=== PATIENT | female | born 1990 ===

== ENCOUNTER 2023-01-09 09:27 | Outpatient (AMB) | payer OTHER, SELFPAY ==
--- NOTE | 2023-01-09 09:30 | MHC.OFFVIS ---
Intake Vital Signs 01/09/23 09:31 Height 5 ft 4 in Weight 163 lb BMI 28.0 BP 118/74 Intake Visit Reasons: Tubal Consult Strategic Account Director Required: No Information Interpreted: non-clinical & clinical Accompanied by: Self / Same As Patient Allergies No Known Allergies Allergy (Verified 01/09/23 09:32) Is last menstrual period known: Yes Last menstrual period: 01/02/23 HPI HPI Comments History of Present Illness Details Presenting to discuss different options of control. Last co testing was negative in 11/18 [facility] Surgical History Hx of cholecystectomy Family History Mother Diabetes HTN (hypertension) COPD (chronic obstructive pulmonary disease) Hypothyroidism Father Heart disease Brother Diabetes Social History Household Members: Children Housing: House Alcohol intake: current Alcohol intake frequency: holidays/special occasions only Patient Tobacco Use Status: Former Tobacco user Years Smoked: 5 Current occupational status: employed Current occupation: [employer] Sexual orientation: Straight/Heterosexual Gender identity: Female Female Reproductive History Menstrual Age of Menarche: 11 Duration of menses: 6-7 days Date of last menstrual period: 01/02/23 control method: none Total pregnancies: 6 Full term: 3 Number of Living Children: 3 Ab spontaneous: 3 Review of Systems Const All systems reviewed & are unremarkable except as noted in HPI and below Reports as per HPI and Reports no additional complaints GI Reports no additional complaints Reports no additional complaints Physical Exam Vital Signs: Last Vital Signs BP 118/74 01/09/23 09:31 BMI result Body Mass Index 28.0 Assessment & Plan Assessment & Plan (1) Family planning: Code(s): Z30.09 - Encounter for other general counseling and advice on contraception Plan: Discussed with the patient the different options of control including but not limited to, control pills, Nuvaring, DMPA and Nexplanon, Copper and Progesterone IUD, Sterilization, & vasectomy. A more detailed discussion about the pros and cons of each were discussed with the pt. The patient elected to go with tubal sterilization. The patient verbalized understanding and stated that she had completed her family and is would like to proceed with permanent sterilization. Laparoscopic bilateral sterilization using bilateral cauterization possible bilateral salpingectomies scheduled. [employer] paperwork signed, will schedule the procedure after 30 days and a preop visit. All questions answered. The patient verbalized understanding. Coding Level of Care Code New Pt Level 3 (54745) Diagnoses Family planning Z30.09
[2023-01-09 09:31] VITALS: BP 118/74; BMI 28.0
== END 2023-01-09 11:57 | disposition home or self-care (01) ==
PROVIDERS: Visit Provider Obstetrics & Gynecology
DX: Z30.09 Encounter for other general counseling and advice on contraception (principal)
CPT/HCPCS: 99203

== ENCOUNTER → 2023-01-09 09:27 | Outpatient (BNVA) | payer OTHER, SELFPAY | PROVIDERS: Visit Provider Obstetrics & Gynecology ==

== ENCOUNTER 2023-02-11 07:28 | Outpatient (AMB) | payer OTHER, SELFPAY ==
--- NOTE | 2023-02-11 07:30 | A.OFFVIS_ITS ---
Intake Vital Signs 02/11/23 07:32 Height 5 ft 4 in Weight 160 lb 14.999 oz BMI 27.6 BP 120/72 Intake Visit Reasons: pre op Manager Access Required: No Information Interpreted: non-clinical & clinical Accompanied by: Daughter Allergies No Known Allergies Allergy (Verified 02/11/23 07:36) Is last menstrual period known: Yes Last menstrual period: 01/30/23 HPI HPI Comments History of Present Illness Details The patient is presenting for preoperative visit for Laparoscopic bilateral cauterization of fallopian tubes possible salpingectomies for sterilization. The patient is requesting permanent sterilization because she completed her family. [facility] Surgical History Hx of cholecystectomy Family History Mother Diabetes HTN (hypertension) COPD (chronic obstructive pulmonary disease) Hypothyroidism Father Heart disease Brother Diabetes Social History Household Members: Children Housing: House Alcohol intake: current Alcohol intake frequency: holidays/special occasions only Patient Tobacco Use Status: Former Tobacco user Years Smoked: 5 Current occupational status: employed Current occupation: [employer] Sexual orientation: Straight/Heterosexual Gender identity: Female Female Reproductive History Menstrual Age of Menarche: 11 Date of last menstrual period: 01/30/23 Review of Systems Const All systems reviewed & are unremarkable except as noted in HPI and below Card Reports as per HPI, Reports no additional complaints, Denies chest pain, Denies chest pain with activity, Denies dyspnea and Denies dyspnea on exertion Resp Reports as per HPI, Reports no additional complaints, Denies cough, Denies pain on inspiration, Denies pain with cough, Denies dyspnea, Denies dyspnea on exertion and Denies wheezing GI Reports as per HPI, Reports no additional complaints, Denies abdominal pain, Denies change in bowel habits, Denies change in stool character, Denies early satiety, Denies dyspepsia, Denies heartburn, Denies nausea and Denies vomiting Reports as per HPI, Denies hematuria and Denies dysuria Aller/Immun Denies wheezing Physical Exam Vital Signs: Last Vital Signs BP 120/72 02/11/23 07:32 BMI result Body Mass Index 27.6 Const General: cooperative, healthy appearing and comfortable Chest Chest palpation & inspection: normal inspection of the chest and normal palpation of entire chest wall Resp Effort & Inspection: normal respiratory effort Auscultation: clear to auscultation bilaterally Percussion: percussion normal Cardio Palpation: normal PMI Rate: regular rate Rhythm: regular rhythm Heart sounds: no murmurs and no rubs Peripheral pulses: Peripheral pulses 2+ throughout GI Inspection: Yes normal to inspection Palpation (GI): Soft to palpation, nontender, no guarding, not rigid and No hepatosplenomegaly present Percussion: Yes normal to percussion Auscultation: normal bowel sounds Rectal Exam - Female: deferred Assessment & Plan Assessment & Plan (1) Sterilization: Code(s): Z30.2 - Encounter for sterilization Plan: Discussed with the patient the different options of control including but not limited to, control pills, Nuvaring, DMPA and Nexplanon, Copper and Progesterone IUD, Sterilization, & vasectomy. A more detailed discussion about t he pros and cons of each were discussed with the pt. The patient elected to go with tubal sterilization. Different techniques were discussed with the patient including laparoscopic bilateral fallope ring application, bipolar cauterization of Fallopian tubes & bilateral salpingectomy with benefits of reducing ovarian cancer (mentioned to the patient that currently this is the recommended procedure for sterilization). Discussed with the patient the likelihood of success, the failure rate and risk of ectopic , irreversibility of the procedure , regret rate and complications during procedure including but not limited to: inability to perform the procedure for a variety of technical reasons, infection, bleeding, possible need for blood transfusion, risk exposure HIV Hepatitis B and C, anesthesia complications, injury to bladder, bowel, ureter blood vessels, vagina by way of perforation requiring a second operation to repair fistula, major surgery requiring colostomy possible removal of the uterus, ovaries and tubes necessitating laparotomy. The patient verbalized understanding and stated that she had completed her family and is would like to proceed with permanent sterilization. Laparoscopic bilateral sterilization using bilateral cauterization possible bilateral salpingectomies scheduled. All questions answered. The patient verbalized understanding and signed the consent. Coding Level of Care Code Est Pt Level 3 (88973) Diagnoses Sterilization Z30.2
[2023-02-11 07:32] VITALS: BP 120/72; BMI 27.6
== END 2023-02-11 07:43 | disposition home or self-care (01) ==
PROVIDERS: Visit Provider Obstetrics & Gynecology
DX: Z30.2 Encounter for sterilization (principal)
CPT/HCPCS: 99213

== ENCOUNTER → 2023-02-11 07:28 | Outpatient (BNVA) | payer OTHER, SELFPAY | PROVIDERS: Visit Provider Obstetrics & Gynecology | DX: Z30.2 Encounter for sterilization (principal) | CPT/HCPCS: 99212 ==

== ENCOUNTER 2023-02-15 07:26 | Day surgery (SDC) | payer OTHER, SELFPAY ==
[2023-02-13 09:06] VITALS: BMI 27.6
--- NOTE | 2023-02-14 09:13 | P.CONAN_ITS ---
Documented by User: Bethanie Soto NP 02/14/23 09:13 HPI - Anesthesia Eval Consult details Narrative: 32yo F for Tubal Ligation Laparoscopic,with poss Salpingectomy PMFSH Active Problems Active Problems: All Active Problems (Updated 02/11/23 @ 07:36 by Anibal Rubin MD) Sterilization (Acute) Family planning (Acute) Past Medical History Medical History Smoker Family History Family History Mother Diabetes HTN (hypertension) COPD (chronic obstructive pulmonary disease) Hypothyroidism Father Heart disease Brother Diabetes Surgical History Surgical History Hx of cholecystectomy Social History Social History Household Members: Children Housing: House Alcohol intake: current Alcohol intake frequency: a few times a month Patient Tobacco Use Status: Current someday Tobacco user Tobacco use type: Cigarette Cigarettes Per Day: 2 Years Smoked: 5 Smoked in Last 30 Days: Yes Use of substances other than those prescribed or required for medical reasons: No Are you DNR?: No Advance Directives: No Advance Directives Information Provided: Yes Current occupational status: employed Current occupation: [email or web address] Sexual orientation: Straight/Heterosexual Gender identity: Female Meds Allergies Allergy/AdvReac Type Severity Reaction Status Date / Time No Known Allergies Allergy Verified 02/15/23 07:57 Home Medications Medication Instructions Recorded Confirmed Last Taken Type No Known Home Meds 01/09/23 02/15/23 Unknown History Exam Height,Weight and Vital Signs: Height 5 ft 4 in Weight 73 kg Assessment and Plan Assessment Anesthesia Assessment: Chart Reviewed Documented by User: Alyssa Rodriguez MD 02/15/23 08:18 PMFSH Active Problems Active Problems: All Active Problems (Updated 02/15/23 @ 08:94 by MD) Sterilization (Acute) Family planning (Acute) Very anxious Increased BMI Possible ANA but not formally diagnosed Smoker- last cigarette this morning Past Medical History Medical History Smoker Family History Family History Mother Diabetes HTN (hypertension) COPD (chronic obstructive pulmonary disease) Hypothyroidism Father Heart disease Brother Diabetes Family history of problems with anesthesia: No Surgical History Surgical History Hx of cholecystectomy History of Problems with Anesthesia: No Social History Social History Household Members: Children Housing: House Alcohol intake: current Alcohol intake frequency: a few times a month Patient Tobacco Use Status: Current someday Tobacco user Tobacco use type: Cigarette Cigarettes Per Day: 2 Years Smoked: 5 Smoked in Last 30 Days: Yes Use of substances other than those prescribed or required for medical reasons: No Are you DNR?: No Advance Directives: No Advance Directives Information Provided: Yes Current occupational status: employed Current occupation: [email or web address] Sexual orientation: Straight/Heterosexual Gender identity: Female Meds Allergies Allergy/AdvReac Type Severity Reaction Status Date / Time No Known Allergies Allergy Verified 02/15/23 07:57 Home Medications Medication Instructions Recorded Confirmed Last Taken Type No Known Home Meds 01/09/23 02/15/23 Unknown History Exam Height,Weight and Vital Signs: Height 5 ft 4 in Weight 73 kg Vital Signs Temp Pulse Resp BP Pulse Ox O2 Del Method 02/15/23 07:52 98.7 F 85 16 122/78 99 Room Air Pertinent Lab Results Pertinent Lab Results: Lab Results 02/15/23 Range/Units 07:35 Urine Test NEGATIVE (NEGATIVE) Airway Mallampati Class: III (Large tongue) TM Dist: >3cm Neck ROM: Full Loose/Missing/Broken Teeth: No (Denies broken, loose, missing teeth) Heart: RRR Lungs: CTAB Assessment and Plan Assessment Anesthesia Assessment: Anesthesia Plan Discussed Final Anesthetic Review Family History of Problems with Anesthesia: No History of Problems with Anesthesia: No NPO: Yes ASA Class: II Final Preanesthetic Review: No Changes in Pt Med Stat, Meds/Allgs Chart Reviewed, Consent Obtained/Reviewed and Anes Risks/Benef Reviewed Patient Risk: Intermediate Procedure Risk: Low Assessment/Block/Sedation in SS: Assess/Block/Sedation- Anesthetic Plan Anesthetic Plan: GA Disposition: Standard PACU
[2023-02-15] VITALS (20 sets, daily range): BP systolic 97–132; BP diastolic 28–92; PULSE 71–100; RESP 16–20; TEMP 36.6–37.1; O2SAT 97–100; BMI 30.2
--- OUTSIDE RECORDS SUMMARY | 2023-02-15 07:28 | XMS_ITS | Continuity of Care Document ---
Author Name Unknown Organization [facility] ter Address [address] [place] [id number]- Care Team Providers Care Data Sme Name Role Phone Homero LAI, Deb Dong Primary Care Physician Encounter [facility] Date(s): 01/18/23 - 01/18/[address] [address]- Encounter Diagnosis Finger laceration(Final) - 01/18/23 Discharge Disposition: A-D/C Home Attending Physician: Juan Jose Ponce DO Admitting Physician: Juan Jose Ponce DO Referring Physician: Not on Staff, Referring MD Allergies, Adverse Reactions, Alerts Substance Reaction Severity Status Nuts 1 C/O: a swelling Active Percocet 7.5/325 Active 1pecan allergy=swelling. Immunizations Given and Recorded Vaccine Date Status Refusal Reason tetanus/diphtheria/pertussis, acel(Tdap) 01/18/23 Given influenza virus vaccine, inactivated 01/31/16 Give n influenza virus vaccine, inactivated 02/17/07 Give n Human Papillomavirus Vaccine 07/07/07 Given Human Papillomavirus Vaccine 05/01/07 Given Human Papillomavirus Vaccine 02/17/07 Given Tet/Diphth/Acel, Pertussis (oldterm) 07/07/07 Give n Hepatitis A Vaccine (oldterm) 02/17/07 Given Meningococcal Conjugate Vaccine 02/17/07 Given Haemophilus B Conj Vaccine (oldterm) 09/07/02 Give n Haemophilus B Conj Vaccine (oldterm) 07/02/02 Give n Haemophilus B Conj Vaccine (oldterm) 07/21/90 Give n Hepatitis B Vaccine (old term) 07/02/02 Given Hepatitis B Vaccine (old term) 01/21/02 Given tetanus-diphtheria toxoids (Td) 01/31/02 Given Varicella Virus Vaccine 01/22/00 Given Measles/Mumps/Rubella Virus Vaccine 02/12/96 Given Measles/Mumps/Rubella Virus Vaccine 12/21/90 Given diphtheria/tetanus/pertussis, acel(DTaP) 06/21/94 Given diphtheria/tetanus/pertussis, acel(DTaP) 07/25/90 Given diphtheria/tetanus/pertussis, acel(DTaP) 89 Given diphtheria/tetanus/pertussis, acel(DTaP) 89 Given diphtheria/tetanus/pertussis, acel(DTaP) 89 Given Poliovirus Vaccine, Inactivated 07/23/90 Given Poliovirus Vaccine, Inactivated 89 Given Poliovirus Vaccine, Inactivated 89 Given Poliovirus Vaccine, Inactivated 89 Given Medications albuterol CFC free 90 mcg/inh inhalation aerosol 1 puffs, Inhalation, 4 times a day, PRN for wheezing, # 18 Gm, 0 Refills, Maintenance, Aerosol Start Date: 01/16/13 Status: Ordered Sheron By Mouth, 0 Refills, Maintenance, 08/03/18 4:54:36 EDT Start Date: 08/03/18 Status: Ordered Colace sodium 100 mg oral capsule 100 mg, 1, capsule, By Mouth, Daily, PRN, # 20 capsule, Refills 3, Tot. Refills 3, Maintenance, forconstipation, 12/15/15 16:16:33, Route to Pharmacy Electronically, [id number], [facility] [id number] Start Date: 12/15/15 Stop Date: 03/31/16 Status: Ordered Colace sodium 50 mg oral capsule 1 capsule = 50 mg, By Mouth, 2 times a day, PRN for constipation, # 180 capsule, 0 Refills, Maintenance, 12/15/15 15:31:40, Capsule Start Date: 12/15/15 Status: Ordered Diclegis 10 mg-10 mg oral delayed release tablet 2 tablet, By Mouth, Daily at bedtime, Start with 1 tablet nightly for 3 nights then begin 2 tablets, # 60 tablet, 0 Refills, Maintenance, 09/07/15 11:36:42, 2 tablet By Mouth Daily at bedtime,x30 days,Instr:Start with 1 tablet nightly for 3 nights the... Start Date: 09/07/15 Stop Date: 10/07/15 Status: Ordered Dilaudid 2 mg oral tablet 1 tablet = 2 mg, By Mouth, Every 6 hours, PRN for pain, # 6 tablet, 0 Refills, Maintenance, 03/13/16 7:00:12, Tablet Start Date: 03/13/16 Status: Ordered hydrocortisone-lidocaine 0.5%-3% rectal cream 1 applicator, Rectally, 2 times a day, # 28.3 Gm, 0 Refills, Maintenance, 10/27/17 12:45:08 EDT Start Date: 10/27/17 Status: Ordered MiraLax oral powder for reconstitution = 17 Gm, By Mouth, Daily, dissolve in water before taking, # 527 Gm, 0 Refills, Maintenance, 10/27/17 12:44:50 EDT, REC Powder Start Date: 10/27/17 Status: Ordered pantoprazole 20 mg oral delayed release tablet 20 mg, By Mouth, 2 times a day, # 60 tablet, Refills 0, Tot. Refills 0, Maintenance, 09/07/15 11:35:08, Route to Pharmacy Electronically, [id number], [facility] [id number] Start Date: 09/07/15 Stop Date: 10/07/15 Status: Ordered Protonix 40 mg oral granule 1 pack/packet, By Mouth, Daily, do not crush or chew add packet contents to apple juice or applesauce only 30 minutes before meals, # 30 pack/packet, 0 Refills, Maintenance, 08/30/15 13:53:58, Granule Start Date: 08/30/15 Stop Date: 09/29/15 Status: Ordered Vicodin 5 mg-300 mg oral tablet 1 tablet, By Mouth, Every 6 hours, # 10 tablet, 0 Refills, Maintenance, 10/27/17 12:44:37 EDT Start Date: 10/27/17 Status: Ordered Zofran 4 mg oral tablet 1 tablet = 4 mg, By Mouth, Every 6 hours, PRN Nausea & Vomiting, # 10 tablet, 0 Refills, Maintenance, 03/13/16 7:02:25, Tablet Start Date: 03/13/16 Status: Ordered Problem List Condition Confirmation Course Effective Dates Status Health St atus Informant Epigastric pain Confirmed Active Obesity Confirmed Active Currently Confirmed Active Social History Social History Type Response Smoking Status Current every day ny ferrara entered on: 04/13/14 Sex Female Note * Michael Chanel MD: PERFORM Event Display: Patient Education Leaflets Authored Date: [id number] Small or Superficial Laceration: Not Stitched ?? [id number] Small or Superficial Laceration: Not Stitched A laceration is a cut through the skin. A laceration requires stitches, wound glue (adhesive), or joseph if it's deep or spread open. This is especially true in a cosmetic area such as the face. A small laceration often doesn't??require stitches.?? You may need a tetanus shot. This may be given if you have no record of or are not up to date on this vaccine and the cut may lead to tetanus. Home care ??? Follow all instructions for medicines. o Your healthcare provider may prescribe an antibiotic. This is to help prevent infection. Take the medicine every day until it's gone, even if you feel better, or unless you are told to stop. You should not have any left over. o The healthcare provider may prescribe medicines for pain. Use the medicine as directed. ??? Follow the healthcare provider???s instructions on how to care for the cut. ??? Wash your hands with soap and clean, runningwater before and after caring for the cut.??This helps prevent infection. ??? Keep the wound clean and dry. If a bandage was applied and it becomes wet or dirty, replace it. Otherwise, leave it in place for the first 24 hours, then change it once a day or as directed. ??? Clean the wound daily: o After removing any bandage, wash the area with soap and water. Use a clean, wet cotton swab to loosenand remove any blood or crust that forms. o After cleaning, keep the wound clean and dry. Talk withyour healthcare provider before applying any antibiotic ointment to the wound. Reapply a fresh bandage. ??? You may remove any bandage to shower as usual after the first 24 hours, but don't soak the area in water (no tub baths or swimming) for the next 5 days. ??? If the area gets wet, gently pat it dry with a clean cloth. If using a bandage, replace it with a dry one. ??? Don't do activities that may reinjure your wound. ??? Don't scratch, rub, or pick at the area. ??? Check the wound daily for signs of infection listed below. ??? After the wound has healed, apply sunscreen to the area to help minimize scarring. ?? Follow-up care Follow up with your healthcare provider, or as advised. ?? When to get medical advice Call your healthcare provider right away??if any of these occur: ??? Wound bleeding that's not controlled by direct pressure ??? Signs of infection. These include increasing pain in the wound, increasing wound redness or swelling, or pus or bad odor coming from the wound. ??? Fever of??100.4??F (38??C)??or higher, or as directed by your healthcare provider ??? Chills ??? Wound edges reopen ??? Wound changes colors ??? Numbness around the wound? Decreased movement around the injured area ?? Last Reviewed Date: 2022 ?? 8009-3827 [employer]. All rights reserved. This information is not intended as a substitute for professional medical care. Always follow your healthcare professional's instructions. ?? Patient Care team information Care Team Personnel Name: Deb Valentin MD Position: [facility] Physician (General Medicine) Member Role: PCP Address: Address: [address] [place] [id number]- Name: Eufemia Samano RN Position: [facility] OB RN Member Role: Primary Care Nurse Name: Juan Jose Ponce DO Position: [facility] Resident Member Role: Admitting Physician Address: Address: [address] [place] [id number]- Name: Christy Sharma Position: [facility] ED TA [facility] Name: Sangita Brown RN Position: [facility] ED RN W/OE and Tasks Member Role: Patient Care Provider Name: Michael Chanel MD Position: [facility] Resident Member Role: ED Resident Address: Address: [address] [place] [id number]- Care Team Related Persons Name: ANEUDY PLUNKETT Address: home [address] [place] [id number] Name: LANCE REGAN Address: home [address] [place] [address]
--- OUTSIDE RECORDS SUMMARY | 2023-02-15 07:28 | XMS_ITS | Continuity of Care Document ---
Author Name Unknown Organization [facility] ter Address [address] [place] [id number]- Care Team Providers Care Centerless Grinder Operator Name Role Phone Homero LAI, Deb Dong Primary Care Physician Encounter [facility] Date(s): 08/15/22 - 08/15/[address] [address]- Encounter Diagnosis Pharyngitis(Final) - 08/15/22 Discharge Disposition: A-D/C Home Attending Physician: Sonal Jones MD Admitting Physician: Sonal Jones MD Referring Physician: Not on Staff, Referring MD Allergies, Adverse Reactions, Alerts Substance Reaction Severity Status Nuts 1 C/O: a swelling Active Percocet 7.5/325 Active 1pecan allergy=swelling. Immunizations Given and Recorded Vaccine Date Status Refusal Reason influenza virus vaccine, inactivated 01/31/16 Give n [...] forconstipation, 12/15/15 16:16:33, Route to Pharmacy Electronically, [id number], [facility] [id number] Start Date: 12/15/15 Stop Date: 03/31/16 Status: [...] Maintenance, 09/07/15 11:35:08, Route to Pharmacy Electronically, [id number], [facility] [id number] Start Date: 09/07/15 Stop Date: 10/07/15 Status: [...] Active Obesity Confirmed Active Currently Confirmed Active Results Orders for Microbiology Reports Name Date Group A Strep Screen and Culture 08/15/22 Microbiology Reports TEST:Group A Strep Screen and Culture STATUS:Unauthenticated BODY SITE: SOURCE:THROAT COLLECTED DATE/TIME:08/15/22 11:33 AM Group A Strep Screen and Culture SPECIMEN DESCRIPTION : THROAT SWAB SPECIAL REQUESTS : NONE DIRECT EXAM : RAPID GROUP A RESULT IS NEGATIVE, REFER TO CULTURE RESULT. REPORT STATUS : PRELIMINARY REPORT Vital Signs Most recent to oldest [Reference Range]: 1 Oxygen Saturation [94-100 %] 100 % (08/15/22 11:17 AM) Pulse Rate [55-90 bpm] 79 bpm (08/15/22 11:17 AM) Blood Pressure [90-138/55-84 mm Hg] 140/ 77mm Hg *H* (08/15/22 11:17 AM) Respiratory Rate [16-30 br/min] 18 br/mi n (08/15/22 11:17 AM) Temperature [96.8-100.4 DegF] 98.4 DegF (08/15/22 11:17 AM) Mode of Delivery (Oxygen) Room air (08/15/22 11:17 AM) Blood pressure sites Arm, left (08/15/22 11:17 AM) Temperature Route Oral (08/15/22 11:17 AM) Social History Social History Type Response Smoking Status Current every day ny josias entered on: 04/13/14 Sex Note * Sonal Jones MD: PERFORM Event Display: Patient Education Leaflets Authored Date: [id number] Acute Viral Pharyngitis (Sore Throat) ?? [id number] Acute Viral Pharyngitis (Sore Throat) You or your child have a sore throat (pharyngitis). This infection is caused by a virus. It??can cause throat pain that is worse when swallowing, aching all over, headache,??and fever. The infection may be spread by coughing, kissing,??or touching others after touching your mouth or nose. Antibiotic medicines don't work against viruses. They are not used for treating this illness. Home care ??? If symptoms are severe, you or your child should rest at home. Return to work or school when you or your child feel well enough.? You or your child should drink plenty of fluids to prevent dehydration. ??? Adults and children 5 years and older can use throat lozenges or numbing throat sprays to help reduce pain. Gargling with warm saltwater will also help reduce throat pain. Dissolve 1/2teaspoon of salt in 1 glass of warm water. Children can sip on juice or an ice pop. Children 5 years and older can also suck on a lollipop or hard candy. (Hard candy and lozenges can be a choking hazard in children younger than 5 years.) ??? Don???t eat salty or spicy foods or give them to your child. These can be irritating to the throat. Medicines for a child: You can give your child acetaminophen for fever, fussiness, or discomfort. In babies over 6 months of age, you may use ibuprofen or acetaminophen. If your child has chronic liver or kidney disease or ever had a stomach ulcer or gastrointestinal bleeding, talk with your child???s healthcare provider before giving these medicines. Aspirin should never be used by any child under 18 years of age who has a fever. It may cause severe liver damage and . Don't give your child any other medicine without first asking your child's provider. Medicines for an adult: You may use acetaminophen, naproxen, or ibuprofen to control pain or fever,unless another medicine was prescribed for this. If you have chronic liver or kidney disease or ever had a stomach ulcer or gastrointestinal bleeding, talk with your healthcare provider before using these medicines. ?? Follow-up care Follow up with a healthcare provider, or as advised, if you or your child aren't getting better over the next week. ?? When to get medical advice Call your healthcare provider right away if any of these occur: ??? Fever of 100.4??F (38??C) or higher, or as advised by the provider (see Fever and children below)? New or worsening ear pain, sinus pain, or headache ??? Painful lumps in the back of neck ??? Stiff neck ??? Lymph nodes are getting larger ??? Can???t open mouth wide due to throat pain ???New rash ??? Other symptoms are getting worse Call 911 Call 911 right away if any of these occur: ? Trouble breathing or noisy breathing ??? Muffled voice ??? Can't swallow liquids, a lot of drooling, or any other symptoms that may mean worsening swelling in the throat ??? Signs of dehydration such as very dark urine or no urine, sunken eyes, dizziness ? Fever and children Use a digital thermometer to check your child???s temperature. Don???t use a mercury thermometer. There are different kinds and uses of digital thermometers. They include: ??? Rectal. For children younger than 3 years, a rectal temperature is the most accurate. ??? Forehead (temporal). This works for children age 3 months and older. If a child under 3 months old has signs of illness, this can be used for a first pass. The provider may want to confirm with a rectal temperature. ??? Ear (tympanic). Ear temperatures are accurate after 6 months of age, but not before. ??? Armpit (axillary). This is the least reliable but may be used for a first pass to check a child of any age with signs of illness. The provider may want to confirm with a rectal temperature. ??? Mouth (oral). Don???t use a thermometer in your child???s mouth until they are at least 4 years old. Use the rectal thermometer with care. Follow the product maker???s directions for correct use. Insert it gently. Label it and make sure it???s not used in the mouth. It may pass on germs from the stool. If you don???t feel OK using a rectal thermometer, ask the healthcare provider what type to use instead. When you talk with any healthcare provider about your child???s fever, tell them which typeyou used. ?? Last Reviewed Date: 2021 ?? [id number] The [employer]. All rights reserved. This information is not intended as a substitute for professional medical care. Always follow your healthcare professional's instructions. ?? Patient Care team information Care Team Personnel Name: Deb Valentin MD Position: [facility] Physician (General Medicine) Member Role: PCP Address: Address: [address] [place] [address] Name: Eufemia Samano RN Position: [facility] OB RN Member Role: Primary Care Nurse Name: *[facility], ED Attending Position: [facility] ED Attendings Patient Name: Collin iRder RN Position: [facility] ED RN W/OE and Tasks Member Role: Patient Care Provider Name: Sonal Jones MD Position: [facility] Resident Member Role: Admitting Physician Address: Address: [address] [place] [address]- Care Team Related Persons Name: ANEUDY PLUNKETT Address: home [address] [place] [address] Name: LANCE REGAN Address: [address] [place] [address]
--- OUTSIDE RECORDS SUMMARY | 2023-02-15 07:28 | XMS_ITS | Continuity of Care Document ---
Author Name Unknown Organization [facility] ter Address [address] [place] [id number]- Care Team Providers Care Accounts Payable Payroll Coordinator Name Role Phone Homero LAI, Deb Dong Primary Care Physician Encounter [facility] Date(s): 11/11/21 - 11/11/[address] [address]- Encounter Diagnosis Needlestick injury accident with exposure to body fluid(Final) - 11/11/21 Discharge Disposition: A-D/C Home Attending Physician: Humberto Woodruff MD Admitting Physician: Humberto Woodruff MD Referring Physician: Not on Staff, Referring [...] forconstipation, 12/15/15 16:16:33, Route to Pharmacy Electronically, [id number], [facility] [id number] Start Date: 12/15/15 Stop Date: 03/31/16 Status: [...] Maintenance, 09/07/15 11:35:08, Route to Pharmacy Electronically, [id number], [facility] [id number] Start Date: 09/07/15 Stop Date: 10/07/15 Status: [...] Date: 03/13/16 Status: Ordered Problem List Condition Effective Dates Status Health Status Inform ant Epigastric pain(Confirmed) Active Obesity(Confirmed) Active Currently (Confirmed) Active Vital Signs Most recent to oldest [Reference Range]: 1 Oxygen Saturation [94-100 %] 100 % (11/11/21 10:35 AM) Pulse Rate [55-90 bpm] 82 bpm (11/11/21 10:35 AM) Blood Pressure [90-138/55-84 mm Hg] 141/ 72mm Hg *H* (11/11/21 10:35 AM) Respiratory Rate [16-30 br/min] 16 br/mi n (11/11/21 10:35 AM) Temperature [96.8-100.4 DegF] 98.6 DegF (11/11/21 10:35 AM) Blood pressure sites Arm, left (11/11/21 10:35 AM) Social History Social History Type Response Smoking Status Current every day ny ferrara entered on: 04/13/14 Sex
--- OUTSIDE RECORDS SUMMARY | 2023-02-15 07:28 | XMS_ITS | Continuity of Care Document ---
Author Name Unknown Organization [facility] ter Address [address] [place] [address]- Care Team Providers Care Front Office Associate Name Role Phone Homero LAI, Deb Dong Primary Care Physician [place] [facility] Date(s[place] 06/27/19 - 06/27/[address] [address]- [facility] Encounter Diagnosis Vasovagal episode(Final) - 06/27/19 Discharge Disposition: A-D/C Home Attending Physician: Manuel Hadley MD Admitting Physician: Manuel Hadley MD Referring Physician: Not on Staff, Referring [...] forconstipation, 12/15/15 16:16:33, Route to Pharmacy Electronically, [id number], [facility] [id number] Start Date: 12/15/15 Stop Date: 03/31/16 Status: [...] Maintenance, 09/07/15 11:35:08, Route to Pharmacy Electronically, [id number], [facility] [id number] Start Date: 09/07/15 Stop Date: 10/07/15 Status: [...] Most recent to oldest [Reference Range]: 1 2 Oxygen Saturation [94-100 %] 99 % (06/27/19 3:01 PM) 100 % (06/27/19 1:23 PM) Pulse Rate [55-90 bpm] 63 bpm (06/27/19 3:01 PM) 70 bpm (06/27/19 1:23 PM) Blood Pressure [90-138/55-84 mm Hg] 97/6 1mm Hg (06/27/19 3:01 PM) 119/79mm Hg (06/27/19 1:23 PM) Respiratory Rate [16-30 br/min] 16 br/mi n (06/27/19 3:01 PM) 16 br/min (06/27/19 1:23 PM) Temperature [96.8-100.4 DegF] 98.2 DegF (06/27/19 1:23 PM) Mode of Delivery (Oxygen) Room air (06/27/19 3:01 PM) Room air (06/27/19 1:23 PM) Blood pressure sites Arm, left (06/27/19 3:01 PM) Arm, left (06/27/19 1:23 PM) Temperature Route Oral (06/27/19 1:23 PM) Social History Social History Type Response Smoking Status Current every day ny ferrara entered on: 04/13/14 Sex
[2023-02-15 07:45] LABS: UPreg QC Valid YES; Urine Pregnancy NEGATIVE (NEGATIVE)
[2023-02-15] MEDS: Lactated Ringers 1,000 ML 100 ML IVCONT (08:14)
--- NOTE | 2023-02-15 08:38 | MHC.SHP ---
Pre-Procedural Eval Section A Date of Service: 02/15/23 The patient is an INPATIENT: No Changes since office visit: No Cold of Flu in the past 2 weeks, No New Medical Problems, No Changes in Medication and No Patient answered all questions The History & Physical has been completed within 30 days and I have reviewed it.: Yes Section B Chief Complaint: Encounter for other general counseling and advice Allergies: Allergies Allergy/AdvReac Type Severity Reaction Status Date / Time No Known Allergies Allergy Verified 02/15/23 07:57 Plan Diagnosis/Plan: Unchanged I have reviewed the history and physical and performed a pertinent physical examination on my patient. No changes have occurred unless specified. Time Spent With Patient Time: Total time managing care of this patient today ____ minutes.
--- NOTE | 2023-02-15 10:04 | PM.OP ---
Brief Operative Note Date of Service: 02/15/23 Pre-op diagnosis: Completed family requesting permanent sterilization Post-op diagnosis: same Procedure: Laparoscopic bliateral salpingectomy Surgeon: Anibal Rubin MD Anesthesia: GETA Was an Wound/Ostomy Clinical Nurse Specialist used for this Procedure?: No Estimated blood loss (mL): 0 Pathology: other (Right & left fallopian tubes) Condition: stable Disposition: PACU
--- NOTE | 2023-02-15 10:05 | P.OP_ITS ---
Operative Note Operative Note Date of Service: 02/15/23 Narrative: PREOPERATIVE DIAGNOSIS:?Completed family requesting?permanent sterilization POSTOPERATIVE DIAGNOSIS:?Completed family requesting?permanent sterilization QBL: Minimal Anesthesia: GETA SURGEON:? Anibal Rubin MD?? Industrial Gas Fitter Helper: Complications: None Pathology: Right and left Fallopian tubes? DESCRIPTION OF PROCEDURE:?The patient was taken to the OR where general anesthesia was easily obtained. The patient was then prepped and draped in a sterile fashion and placed in dorsal lithotomy position. A speculum was introduced into the patient?s vagina for cervical visualization. Once the cervix was visualized, a single-toothed tenaculum was applied to the upper lip of the cervix, and a Humi manipulator was introduced into the patient?s cervix. The single tooth tenaculum was then removed and hemostasis was assured?using pressur e. a Maldonado catheter?was inserted and clear urine started draining. Gloves were changed to clean ones. Attention was then drawn to the abdomen where a 10 mm longitudinal incision was done intra umbilical and carried down all the way to the fascia, which was tented?up using 2 Luis Daniel clamps and was nicked in the midline and then extended on both end of the incision?, them using 2 pick?ups the peritoneum?was entered with Metzenbaum scissors and under direct visualization, a 10 mm Tomas trocar was introduced into the patient?s abdomen. Once intraperitoneal placement was confirmed with direct visualization, pneumoperitoneum was started & was easily obtained.Then, two fingerbreadths above the pubic symphysis and towards the?right lower quadrant, under direct visualization, a 5 mm trocar was then introduced into the patient?s abdomen. and a 3rd one on the left?lower quadrant was placed?in a similar manner. The patient was placed in Trendelenburg position, Inspection revealed normal pelvic str uctures & bilateral ovaries and fallopian tubes. Attention was then drawn to the left fallopian tube. The IP ligament was identified and fallopian tube was then grasped by the fimbria and incised from the mesosalpinx using ligasure device, using cautery for hemostasis and cutting afterwards a bite at a time all the way to the cornual end of the left tube. The same was done?on the?right fallopian t ube. Good hemostasis was noted from both fallopian tube sites and the operative site. Specimen were then removed from the patient?s abdomen. Copious irrigation was done. Once good hemostasis was noted from the patient?s abdomen, pneumoperitoneum was deflated and all trocars were removed. Infraumbilical fascia was closed with 0 Vicryl and interrupted suture. The skin was closed with 4-0 Vicryl. The Right and left?lower quadrant ports were closed with 0 Vicryl. Bupivicaine 0.25 10 cc were injected subcuticularly in the 3 incisions. Then speculum was put back in the vagina inspection revealed?hemostasis at the site of the tenaculum, the?humi manipulator was removed? and Maldonado was draining clear urine was taken out too. Sponge, lap and needle counts were correct x2. The patient was taken to the recovery room in stable condition.
[2023-02-15] MEDS: fentaNYL citrate/PF 100 MCG/2 ML VIAL 25 MCG IVPUSH ×4 (10:09→10:25)
[2023-02-15] MEDS: oxyCODONE HCl Immed Release 5 MG TABLET PO (10:35)
[2023-02-15] MEDS: ondansetron HCL 4 MG/2 ML VIAL IVPUSH (10:35)
[2023-02-15] MEDS: Acetaminophen 1,000 MG/100 ML PIGGYBACK 400 MG IV (11:10)
[2023-02-15] MEDS: diphenhydrAMINE HCL 50 MG/ML VIAL 25 MG IVPUSH (11:16)
== END 2023-02-15 14:00 | disposition home or self-care (01) ==
PROVIDERS: Nurse Practitioner; Visit Provider Obstetrics & Gynecology
PROC: (CPT 58670; principal; 2023-02-15 09:00)
DX: Z30.2 Encounter for sterilization (principal); Z90.49 Acquired absence of other specified parts of digestive tract; Z87.891 Personal history of nicotine dependence
CPT/HCPCS: 58661; 81025; 88302; J0131; J0665; J1100; J1170; J1200; J1885; J2250; J2405; J2550; J2704; J3010

== ENCOUNTER → 2023-02-15 07:26 | Outpatient (BNV) | payer OTHER, SELFPAY | PROVIDERS: Visit Provider Obstetrics & Gynecology | DX: Z30.2 Encounter for sterilization (principal) | CPT/HCPCS: 58661 ==

== ENCOUNTER 2023-02-20 10:30 | Outpatient (REF) | payer OTHER, SELFPAY ==
[2023-02-20 11:11] LABS: Hematocrit 40.5 % (37.0-47.0); Hemoglobin 13.7 g/dl (12.0-16.0); Mean Corpuscular HGB Conc 33.8 g/dl (31.0-35.0); Mean Corpuscular Hemoglobin 31.4 pg (27.0-33.0); Mean Corpuscular Volume 92.7 fL (80.0-98.0); Mean Platelet Volume 9.3 fL (9.4-12.3); Platelet Count 215 X10*3/uL (160-400); Red Blood Count 4.37 X10*6/uL (4.20-5.50); Red Cell Distribution Width 11.6 % (11.0-16.0)
== END 2023-02-20 10:31 | disposition home or self-care (01) ==
LOC: HO.LAB 10:30
PROVIDERS: Visit Provider Obstetrics & Gynecology
DX: R52 Pain, unspecified (principal)
CPT/HCPCS: 36415; 85027; 99212

== ENCOUNTER 2023-02-20 10:52 | Outpatient (AMB) | payer OTHER, SELFPAY ==
[2023-02-20 11:00] VITALS: BP 118/70; TEMP 36.5; BMI 30.4
--- NOTE | 2023-02-20 11:00 | A.OFFVIS_ITS ---
Intake Vital Signs 02/20/23 11:00 Height 5 ft 4 in Weight 177 lb BMI 30.4 BP 118/70 Temp 97.7 F Intake Visit Reasons: post op pain Desktop Support Manager Required: No Information Interpreted: non-clinical & clinical Weather Analyst: Weather Analyst Present (Fartun) Allergies oxycodone Allergy (Intermediate, Verified 02/20/23 11:01) Hives Post menopausal: No HPI HPI Comments History of Present Illness Details Presenting day 5 post laparoscopic bilateral salpingectomies complaining of abdominal pain and mild abdominal distension. No nausea or vomiting, no fever or chills or vaginal bleeding, patient has been passing bowel movements regularly. CBC done today showed normal white count = 8 K, H&H 13.7/40.5 PFSH Medical History Smoker Surgical History Hx of tubal ligation Hx of cholecystectomy Family History Mother Diabetes HTN (hypertension) COPD (chronic obstructive pulmonary disease) Hypothyroidism Father Heart disease Brother Diabetes Household Members: Children Housing: House Alcohol intake: current Alcohol intake frequency: a few times a month Patient Tobacco Use Status: Current someday Tobacco user Tobacco use type: Cigarette Cigarettes Per Day: 2 Years Smoked: 5 Current occupational status: employed Current occupation: [employer] Sexual orientation: Straight/Heterosexual Gender identity: Female Female Reproductive History Menstrual Age of Menarche: 11 control method: permanent sterilization Physical Exam Vital Signs: Last Vital Signs Temp 97.7 F 02/20/23 11:00 BP 118/70 02/20/23 11:00 BMI result Body Mass Index 30.4 GI Other: Incisions : clean dry and intact Palpation (GI): Soft to palpation, not firm, nontender and no guarding Assessment & Plan Assessment & Plan (1) Pain: Comment: Postop day 5 from laparoscopic sterilization Code(s): R52 - Pain, unspecified Plan: Discussed with patient possible different diagnosis of postop day 5 pain with abdominal distension recommend to go to emergency room to be evaluated devin. All questions answered, the patient verbalized understanding especially the urgency of her clinical situation and agreed with the plan. Coding Level of Care Code Est Pt Level 3 (14797) Diagnoses Pain R52
== END 2023-02-20 11:09 | disposition home or self-care (01) ==
LOC: HO.HWS 10:52
PROVIDERS: Visit Provider Obstetrics & Gynecology
DX: R52 Pain, unspecified (principal)
CPT/HCPCS: 99213

== ENCOUNTER 2023-02-28 08:32 | Outpatient (AMB) | payer OTHER, SELFPAY ==
[2023-02-28 08:37] VITALS: BP 120/74; BMI 30.3
--- NOTE | 2023-02-28 08:37 | MHC.OFFVIS ---
Intake Vital Signs 02/28/23 08:37 Height 5 ft 4 in Weight 176 lb 5.917 oz BMI 30.3 BP 120/74 Intake Visit Reasons: post op Equipment Installation Professional Required: No Information Interpreted: non-clinical & clinical Accompanied by: Self / Same As Patient Allergies acetaminophen [From Percocet] Allergy (Intermediate, Verified 02/28/23 08:39) Hives Is last menstrual period known: Yes Last menstrual period: 02/27/23 HPI HPI Comments History of Present Illness Details The patient is presenting 2 weeks post laparoscopic bilateral salpingectomy. The patient has no complaints. No feverishness, chills, no pain at the incision sites, no GI/ symptoms. The pathology showed bilateral normal fallopian tubes with no evidence of abnormal pathology. [facility] Medical History Smoker Surgical History Hx of tubal ligation Hx of cholecystectomy Family History Mother Diabetes HTN (hypertension) COPD (chronic obstructive pulmonary disease) Hypothyroidism Father Heart disease Brother Diabetes Social History Household Members: Children Housing: House Alcohol intake: current Alcohol intake frequency: a few times a month Patient Tobacco Use Status: Current someday Tobacco user Tobacco use type: Cigarette Cigarettes Per Day: 2 Years Smoked: 5 Current occupational status: employed Current occupation: [employer] Sexual orientation: Straight/Heterosexual Gender identity: Female Female Reproductive History Menstrual Age of Menarche: 11 Date of last menstrual period: 02/27/23 Physical Exam Vital Signs: Last Vital Signs BP 120/74 02/28/23 08:37 BMI result Body Mass Index 30.3 GI Other: Incisions= clear/dry/intact Inspection: Yes normal to inspection Palpation (GI): Soft to palpation and nontender Assessment & Plan Assessment & Plan (1) Sterilization: Code(s): Z30.2 - Encounter for sterilization Plan: Discussed with the patient the procedure, the intraoperative findings, and pathology results within normal limits. In addition, discussed with the patient the failure rate of the procedure. The patient was instructed to take a test if she misses her periods and to call for bleeding fever, abdominal pain, nausea or vomiting. All questions answered the patient verbalized understanding. Coding Level of Care Code Est Pt Level 3 (36004) Diagnoses Sterilization Z30.2
== END 2023-02-28 09:02 | disposition home or self-care (01) ==
LOC: HO.HWS 08:32
PROVIDERS: Visit Provider Obstetrics & Gynecology
DX: Z30.2 Encounter for sterilization (principal)
CPT/HCPCS: 99213

== ENCOUNTER → 2023-02-28 08:32 | Outpatient (BNVA) | payer OTHER, SELFPAY | PROVIDERS: Visit Provider Obstetrics & Gynecology | DX: Z48.816 Encounter for surgical aftercare following surgery on the genitourinary system (principal) | CPT/HCPCS: 99212 ==

== ENCOUNTER 2023-03-13 12:51 | Outpatient (AMB) | payer OTHER, SELFPAY ==
--- NOTE | 2023-03-13 13:15 | A.OFFVIS_ITS ---
Intake Vital Signs 03/13/23 13:19 Height 5 ft 4 in Weight 176 lb 5.917 oz BMI 30.3 BP 120/76 Intake Visit Reasons: incision check/ok per Natividad Allergies acetaminophen [From Percocet] Allergy (Intermediate, Verified 02/28/23 08:39) Hives HPI HPI Comments History of Present Illness Details Patient is here for a postop laparoscopic tubal ligation skin incision check. History of a tubal ligation, completed her 2 week postop visit without any issues noted on February 28. She also has a upcoming April appointment for her addition postop check. She reports that over the last day or two the incision on the lower right quadrant became tender, and little more red. It is not draining any fluids. She denies any fevers flu-like symptoms. [facility] Medical History Smoker Surgical History Hx of tubal ligation Hx of cholecystectomy Family History Mother Diabetes HTN (hypertension) COPD (chronic obstructive pulmonary disease) Hypothyroidism Father Heart disease Brother Diabetes Social History Household Members: Children Housing: House Alcohol intake: current Alcohol intake frequency: a few times a month Patient Tobacco Use Status: Current someday Tobacco user Tobacco use type: Cigarette Cigarettes Per Day: 2 Years Smoked: 5 Current occupational status: employed Current occupation: [employer] Sexual orientation: Straight/Heterosexual Gender identity: Female Female Reproductive History Menstrual Age of Menarche: 11 Physical Exam Vital Signs: Last Vital Signs BP 120/76 03/13/23 13:19 BMI result Body Mass Index 30.3 Const General: cooperative, healthy appearing, no acute distress and alert GI Other: Incisions are intact. The right lower quadrant incision has some mild pink erythema extending about 2 cm anteriorly, there is an ingrown hair centrally to that area adjacent to the incision. Slightly tender, no drainage noted incisional line is intact with no separation. Inspection: Yes normal to inspection Assessment & Plan Assessment & Plan (1) Encounter for post surgical wound check: Code(s): Z48.89 - Encounter for other specified surgical aftercare Plan Discuss: Skin care for postop area. Advised to apply a warm compress up to 3 times a day for 10-15 minutes. Advised to wear loose clothing so that does not produce any rubbing or pressure to the area. Observe for any signs of infection including: fever flu-like symptoms, increase in redness, induration, odor, pain, drainage, or wound separation. Discussed the natural healing process for postop incisions. Return to the office if any concerns. Keep follow-up with Dr. Rubin as planned in April. All of her questions and concerns were addressed to the best of my ability and shared decision making. She is agreeable to the plan of care. Coding Level of Care Code Est Pt Level 3 (32471) Diagnoses Encounter for post surgical wound check Z48.89
[2023-03-13 13:19] VITALS: BP 120/76; BMI 30.3
== END 2023-03-13 15:03 | disposition home or self-care (01) ==
PROVIDERS: Visit Provider Advanced Practice Midwife
DX: Z48.89 Encounter for other specified surgical aftercare (principal)
CPT/HCPCS: 99213

== ENCOUNTER → 2023-03-13 12:51 | Outpatient (BNVA) | payer OTHER, SELFPAY | PROVIDERS: Visit Provider Advanced Practice Midwife | DX: Z48.89 Encounter for other specified surgical aftercare (principal) | CPT/HCPCS: 99212 ==